=== PATIENT | female | born 1950 | race Caucasian/White ===

== ENCOUNTER → 2019-12-22 | Outpatient (CLI) | payer MEDICARE ==
[~2019-12-22] MED LIST: ALBU6.7H8 IH; ASPI325T8 PO; ASPI81TA59 PO; BUDE10.22 IH; CHOL5000 PO; CITA20TA6 PO; CLOP75TA57 PO; CRESTOR10 MG PO; CYAN50005 SL; CYCL-331 PO; FENO150C PO; FERUMOXYTOL for NON-DIALYSIS 510 MG in IV NORMAL SALINE 100ML 100 ML IV ONE; FOLI1TAB16 PO; IBUP200C9 PO; LISI2.5T PO; METO-239 PO; MULT-18 PO; NIAC750T PO; NITR0.4T22 SL; PRAS25CA PO
[2019-12-22 14:16] VITALS: BP 149/66
[2019-12-22 14:54] VITALS: BP 128/72
--- NOTE | 2019-12-22 14:55 | NUR ---
NURSING NOTE OUTPATIENT PT AMBULATED TO ROOM 107 FOR OUTPATIENT INFUSION. VITALS OBTAINED. 22 G IV STARTED IN RIGHT HAND. INFUSION COMPLETE. IV REMOVED. PT MONITORED FOR 15 MIN POST INFUSION. VITALS OBTAINED. NO COMPLICATIONS. PT AMBULATED OFF UNIT. UBALDO MIDDLETON.
== END | disposition home or self-care (01) ==
LOC: OPINF 13:47
PROVIDERS: ATTEND Internal Medicine
DX: D64.9 Anemia, unspecified (principal)
CPT/HCPCS: 96365; Q0138; 36592

== ENCOUNTER → 2020-01-30 | Outpatient (CLI) | payer MEDICARE ==
[2019-12-22 14:54] VITALS: BP 128/72
[~2020-01-30] MED LIST changes: -FERUMOXYTOL for NON-DIALYSIS 510 MG in IV NORMAL SALINE 100ML 100 ML IV ONE
== END | disposition home or self-care (01) ==
LOC: LAB 09:45
PROVIDERS: ATTEND Nurse Anesthetist, Certified Registered
DX: Z20.828 Contact with and (suspected) exposure to other viral communicable diseases (principal)
CPT/HCPCS: U0003-CS